=== PATIENT | male | born 1975 | race Caucasian/White ===

== ENCOUNTER 2021-07-14 18:05 | Emergency (ER) | payer OTHER ==
[2021-07-14 18:15] VITALS: BP 136/78; TEMP 98; BMI 23.6
[2021-07-14] MEDS ORDERED: DIPHTH,PERTUSS(ACELL),TET 0.5 ML DISP.SYRIN IM ONE ×2 (19:00→19:03)
[2021-07-14] MEDS ORDERED: LIDOCAINE HCL 1%, 10 MG/ML (50 mL VIAL) SQ ONE (20:25)
[2021-07-14] MEDS ORDERED: LIDOCAINE HCL 1%, 10 MG/ML (20ML VIAL) ONE (20:32)
[2021-07-14 22:03] VITALS: PULSE 109
[2021-07-14] MEDS ORDERED: IBUPROFEN 600 MG TABLET (FP) PO ONE ×2 (22:13→22:41)
== END 2021-07-14 22:42 | disposition home or self-care (01) ==
LOC: JER 18:05 → JERFT 18:05 → JER 22:42
PROC: 0PSHXZZ Reposition Right Radius, External Approach (ICD-10-PCS; principal; 2021-07-14)
PROC: 3E0234Z Introduction of Serum, Toxoid and Vaccine into Muscle, Percutaneous Approach (ICD-10-PCS; 2021-07-14)
DX: S52.531A Colles' fracture of right radius, initial encounter for closed fracture (principal); V49.40XA Driver injured in collision with unspecified motor vehicles in traffic accident, initial encounter
CPT/HCPCS: 71046-TC-FY; 72131-TC; 73110-TC-RT-FY; 90715; 99285-25

== ENCOUNTER 2021-07-15 17:11 | Emergency (ER) | payer OTHER ==
[2021-07-15 17:20] VITALS: BP 127/81; PULSE 98; TEMP 97.9; BMI 23.6
== END 2021-07-15 21:05 | disposition home or self-care (01) ==
LOC: JERFT 17:11
PROC: 0RSKXZZ Reposition Left Shoulder Joint, External Approach (ICD-10-PCS; principal; 2021-07-15)
PROC: 2W39X1Z Immobilization of Left Upper Extremity using Splint (ICD-10-PCS; 2021-07-15)
DX: S52.501A Unspecified fracture of the lower end of right radius, initial encounter for closed fracture (principal); V83 Occupant of special vehicle mainly used on industrial premises injured in transport accident
CPT/HCPCS: 73110-TC-RT-FY; 73130-TC-RT-FY; 99285-25